=== PATIENT | female | born 1990 | race Caucasian/White ===

== ENCOUNTER 2024-08-08 01:55 | Emergency (ER) | payer OTHER ==
[2024-08-08] MEDS ORDERED: DEXAMETHASONE SOD PHOSPHATE 10 MG/1 ML VIAL IVPUSH ONE ×2 (02:06→03:52)
[2024-08-08 02:33] VITALS: BP 122/74; PULSE 95; RESP 18; TEMP 99; BMI 32.6
[2024-08-08] MEDS: SODIUM CHLORIDE 0.9% 500 ML INFUS.BAG IV ONE (02:33)
[2024-08-08 03:01] LABS: BASO % 0.6 % (0-2.0); EOS % 1.3 % (0-4.5); HEMATOCRIT 38.1 % (32.4-45.2); HEMOGLOBIN 12.6 GM/dL (10.7-15.3); LYMPH % 25.9 % (8-40); MCH 29.9 pg (25.7-33.7); MCHC 33.1 g/dl (32.0-36.0); MEAN CELL VOLUME 90.3 fl (80-96); MEAN PLT VOLUME 10.2 fl (7.5-11.1); MONO % 4.4 % (3.8-10.2); NEUT % 67.8 % (42.8-82.8); PLATELET COUNT 288 10^3/uL (134-434); RBC 4.22 M/mm3 (3.60-5.2); RDW 13.2 % (11.6-15.6); WHITE BLOOD COUNT 11.8 K/mm3 (4.0-10.0)
[2024-08-08 03:31] LABS: CHLORIDE 106 mmol/L (98-107); POTASSIUM 4.1 mmol/L (3.5-5.1); SODIUM 141 mmol/L (136-145)
[2024-08-08 03:32] LABS: ANION GAP 8 mmol/L (4-13); BLOOD UREA NITROGEN 18.4 mg/dL (7-18); CALCIUM 9.2 mg/dL (8.5-10.1); CO2 28 mmol/L (21-32)
[2024-08-08 03:33] LABS: GLUCOSE,RANDOM 113 mg/dL (74-106)
[2024-08-08 03:36] LABS: CREATININE 1.1 mg/dL (0.55-1.3)
[2024-08-08] MEDS ORDERED: DEXAMETHASONE SOD PHOSPHATE 10 MG/1 ML VIAL ONE (03:53)
== END 2024-08-08 04:14 | disposition home or self-care (01) ==
LOC: FER 01:55
DX: G43.901 Migraine, unspecified, not intractable, with status migrainosus (principal); Z20.822 Contact with and (suspected) exposure to COVID-19
CPT/HCPCS: 36415; 70450-TC; 80048; 84702; 85025; 87635; 99284-25